=== PATIENT | male | born 1965 | race Caucasian/White ===

== ENCOUNTER 2022-07-28 10:12 | Outpatient (CLI) | payer BC, SELFPAY | END 2022-07-28 10:13 | disposition home or self-care (01) | PROVIDERS: PCP Family Medicine; Visit Provider Family Medicine | DX: Z00.00 Encounter for general adult medical examination without abnormal findings (principal); Z13.6 Encounter for screening for cardiovascular disorders; Z12.5 Encounter for screening for malignant neoplasm of prostate | CPT/HCPCS: 80048; 80061; 84153 ==

== ENCOUNTER 2022-09-10 19:31 | Outpatient (CLI) | payer BC, SELFPAY ==
--- NOTE | 2022-09-20 08:19 | W.PM.SLEEP ---
Sleep Study Details Details Interpreting Provider: Carmen Date of Sleep Study: 09/10/22 Sleep Study Details: STUDY TYPE:? Home unattended ? BMI:? 29.2 ORDERING PROVIDER:? Margarita INDICATION:? Concerns about sleep apnea ? SLEEP SUMMARY:? 496 minutes monitored RESPIRATORY SUMMARY:? AHI 17.2, supine 23.2, left lateral 14.2, right lateral 11.1 Low oxygen 81 7.6% of study oxygen less than 90% Snoring 5.6% PERIODIC LIMB MOVEMENTS OF SLEEP:? Not recorded during home study CARDIAC:? Range 24-73, mean 45.6 IMPRESSION:? Significant bradycardia was noted. Moderate obstructive sleep apnea with supine position dependency RECOMMENDATION: Because of the bradycardia would recommend in-lab titration study. Further cardiac evaluation may be indicated.
== END 2022-09-10 19:32 | disposition home or self-care (01) ==
LOC: SLEEP 19:31
PROVIDERS: PCP Family Medicine; Visit Provider Family Medicine
DX: G47.33 Obstructive sleep apnea (adult) (pediatric) (principal); R00.1 Bradycardia, unspecified
CPT/HCPCS: 95806